=== PATIENT | male | born 1955 | race African-American/Black ===

== ENCOUNTER 2017-02-08 07:19 | Emergency (ER) | payer OTHER ==
[~2017-02-08] VITALS: Ht 177.8 cm; Wt 99.0 kg
[2017-02-08 07:30] VITALS: BP 198/98; PULSE 84; RESP 16; TEMP 98; O2SAT 98
[2017-02-08 07:41] VITALS: BP 174/81; PULSE 79; RESP 18; O2SAT 98
[2017-02-08] MEDS ORDERED: LISI-519 PO (07:43)
[2017-02-08] MEDS ORDERED: AMLO5TAB2 PO (07:43)
[2017-02-08] MEDS ORDERED: METO25TA3 PO (07:43)
[2017-02-08] MEDS ORDERED: METF500T PO (07:43)
--- NOTE | 2017-02-08 07:43 | PD ---
HPI Chief Complaint: Fall Time Seen by Provider: 07:43 Travel History International Travel<30 days: No Contact w/Intl Traveler<30days: No Traveled to known affect area: No PFSH Past Medical History Cardiovascular Problems: Yes Diabetes: Yes Patient Takes Glucophage: Yes Hypertension: Yes ?: Not Social History Alcohol Use: No Tobacco Use: No Substance Use: No Allergies-Medications (Allergen,Severity, Reaction): Coded Allergies: Iodinated Contrast- Oral and IV Dye (Verified Allergy, Unknown, 02/08/17) Reported Meds & Prescriptions Reported Meds & Active Scripts Active Reported Metoprolol Tartrate 25 Mg Tab 25 Mg PO BID Amlodipine (Amlodipine Besylate) 5 Mg Tab 5 Mg PO DAILY Lisinopril 5 Mg Tab 5 Mg PO DAILY Metformin (Metformin HCl) 500 Mg Tab 500 Mg PO BIDPC With meals Data Data Last Documented VS Vital Signs Date Time Temp Pulse Resp B/P (MAP) Pulse Ox O2 Delivery O2 Flow Rate FiO2 02/08/17 07:41 79 18 174/81 (112) 98 Room Air 02/08/17 07:30 98.0 Orders Orders Shoulder, Complete (>2vws) (02/08/17 07:49) Shoulder, Complete (>2vws) (02/08/17 07:49) Ketorolac Inj (Toradol Inj) (02/08/17 08:00) Orphenadrine Inj (Norflex Inj) (02/08/17 08:00) MDM Medical Decision Making Medical Screen Exam Complete: Yes Emergency Medical Condition: Yes Medical Record Reviewed: Yes Oralia Hinton Feb 08, 2017 07:43
[2017-02-08] MEDS ORDERED: ORPHENADRINE INJ 60 MG/2 ML AMP IM ONE (08:00)
[2017-02-08] MEDS ORDERED: KETOROLAC TROMETHAMINE 60 MG/2 ML (IM) VIAL IM ONE (08:00)
--- NOTE | 2017-02-08 11:52 | RADRPT ---
EXAM DATE/TIME: 02/08/2017 08:13 [facility] COMPARISON: No previous studies available for comparison. INDICATIONS : Pain from fall. MEDICAL HISTORY : None. SURGICAL HISTORY : None. ENCOUNTER: Initial ACUITY: 1 day PAIN SCORE: 8/10 LOCATION: Right shoulder. FINDINGS: Multiple view examination of the right shoulder demonstrates no evidence of fracture or dislocation. Prominent degenerative changes. Bony mineralization is normal. CONCLUSION: Degenerative changes without fracture. Sterling Bautista MD on February 08, 2017 at 8:42 Board Certified Radiologist. This report was verified electronically.
--- NOTE | 2017-02-08 11:52 | RADRPT ---
EXAM DATE/TIME: 02/08/2017 08:16 [facility] COMPARISON: No previous studies available for comparison. INDICATIONS : Pain from fall. MEDICAL HISTORY : None. SURGICAL HISTORY : None. ENCOUNTER: Initial ACUITY: 1 day PAIN SCORE: 8/10 LOCATION: Left shoulder. FINDINGS: Multiple view examination of the left shoulder demonstrates no evidence of fracture or dislocation. D egenerative changes. Bony mineralization is normal. CONCLUSION: Degenerative changes without fracture. Sterling Bautista MD on February 08, 2017 at 8:42 Board Certified Radiologist. This report was verified electronically.
--- NOTE | 2017-02-09 08:28 | EL ---
cc: KAIDEN ANGELO MD, REBECCA P. PA CHIEF COMPLAINT Slipped and fell earlier now with bilateral shoulder pain, knee pain and ankle pain. TIME OF VISIT 7:43 a.m. HISTORY OF THE PRESENT ILLNESS A 61-year-old male with a past medical history of hypertension and diabetes presented to the emergency department status post slip and fall earlier this morning on a piece of kuo outside in the grass. The patient said he slipped and fell on some wet kuo and felt to his back hitting his shoulder. He is now complaining of bilateral shoulder pain, left greater than right. He tells me that he hit his head, however, there was no loss of consciousness. He denies any headache or confusion. The patient is complaining of moderate to severe pain in his left and right shoulder. He also reports pain in his bilateral knees left greater than right. He also reports ankle pain bilaterally. The patient is requesting imaging of his shoulders, knees, and ankles. He is visiting from out of town. He has no other complaints at this time. PAST MEDICAL HISTORY 1. Hypertension. 2. Diabetes. ALLERGIES CONTRAST DYE AND ORAL DYES. MEDICATIONS 1. Metoprolol 25 milligrams twice a day. 2. Amlodipine 5 milligrams daily. 3. Lisinopril 5 milligrams daily. 4. Metformin 500 milligrams twice a day. REVIEW OF SYSTEMS All other systems reviewed and negative except for bilateral shoulder pain, bilateral ankle pain, bilateral knee pain. PHYSICAL EXAMINATION VITAL SIGNS: Heart rate 79, respiratory rate 18, blood pressure 174/81, O2 saturation 98% on room air. GENERAL: Awake, alert and oriented times three. No acute distress. Well-developed patient. SKIN: No lesions, rashes, masses. HEAD, EYES, EARS, NOSE, AND THROAT: Normocephalic, atraumatic. Extraocular movements intact bilaterally. Pupils equal, round, reactive to light and accommodation. No nasal drainage or discharge. No abnormalities to external ears. Tympanic membranes normal bilaterally without hemotympanum. Mouth no oropharynx abnormalities. NECK: Supple. No lymphadenopathy. No cervical spine process tenderness. Flexion and extension normal. LUNGS: Clear to auscultation bilaterally. No wheezes, rhonchi or rales. CARDIOVASCULAR: Regular rate and rhythm, S1-S2. No murmurs, rubs, or gallops. ABDOMEN: Soft and nontender, nondistended, normoactive bowel sounds. No rebound or guarding. MUSCULOSKELETAL: Decreased range of motion in the bilateral upper extremities at the joint of the shoulder. The patient is able to cross arms across his chest without any difficulty. He does have limited range of motion left greater than right. Internal and external rotation of the shoulders normal, however, elicits pain. Bilateral knees full range of motion. Flexion and extension is normal. Bilateral ankles no gross abnormality. There is no edema of any of the extremities. Rotation of the ankles are normal bilaterally. NEUROLOGIC: Grossly intact. Cranial nerves II through XII intact. No focal deficits. PSYCHIATRIC: As an awake, alert and oriented times three. Normal affect. DIFFERENTIAL DIAGNOSIS Rotator cuff injury, shoulder dislocation, fracture, knee sprain, ankle sprain, left less ankle fracture, less likely knee fracture. NARRATIVE This is a 61-year-old male presenting with multiple complaints status post fall. The patient has most of his pain located in his bilateral shoulders. Examination was done of his entire body. He has full range of motion in all of his extremities, however, there is limited movement in his upper extremities bilaterally at the level of the shoulder. Imaging has been ordered of the bilateral shoulders to rule out any type of bony abnormality or dislocation. I do not believe he has any dislocation. I have had a discussion with the patient regarding his findings. At this time he reports moderate to severe pain so I am providing him with Toradol and Norflex here in the emergency room. Apparently the patient did not want injections, however, he did verbally give consent in front of myself and the nurse stating that he is amenable to injections. He did receive Toradol and Norflex. The patient was taken for imaging. At approximately 8:50 a.m. imaging was still pending and the patient decides that he wants to leave against medical advice. At this present time I do not have radiology reports of the images available. The patient is aware of this and still desires to leave against medical advice. He was provided paper work for against medical advice discharge. DISCHARGE DISPOSITION Against medical advice. CONDITION Stable. Dictated by: Oralia Hinton PA-C Kaiden Angelo M.D. ABILIO/CRUZ /8:52 AM /8:25 AM
== END 2017-02-08 08:15 | disposition left against medical advice (07) ==
LOC: NED 07:19 → NEPD 08:15
DX: M25.512 Pain in left shoulder (principal); M25.511 Pain in right shoulder; W01.0XXA Fall on same level from slipping, tripping and stumbling without subsequent striking against object, initial encounter; I10 Essential (primary) hypertension; E11.9 Type 2 diabetes mellitus without complications; Z79.84 Long term (current) use of oral hypoglycemic drugs
CPT/HCPCS: 73030; 96372; 99284; J1885; J2360